=== PATIENT | male | born 1950 | race Caucasian/White ===

== ENCOUNTER 2020-09-22 18:04 | Emergency (ER) | payer MEDICARE, OTHER, SELFPAY | END 2020-09-22 18:26 | disposition left against medical advice (07) | PROVIDERS: Emergency Provider Internal Medicine Hematology & Oncology | DX: Z53.21 Procedure and treatment not carried out due to patient leaving prior to being seen by health care provider (principal) | CPT/HCPCS: 99199 ==

== ENCOUNTER 2020-09-22 18:28 | Emergency (ER) | payer MEDICARE, OTHER, SELFPAY ==
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
[2020-09-22 18:31] VITALS: BP 140/76; PULSE 79; RESP 18; TEMP 36.8; O2SAT 94
[2020-09-22 18:55] LABS: Basophils Absolute Auto 0.1 K/mm3 (0.0-0.1); Basophils Percent Auto 0.6 % (0.2-1.2); Eosinophils Absolute Auto 0.2 K/mm3 (0-0.3); Eosinophils Percent Auto 1.1 % (0-4.4); Hematocrit 46.6 % (42.0-52.0); Hemoglobin 15.8 g/dL (14.0-18.0); Immature Granulocyte Absolute 0.15 K/mm3 (0.00-0.031); Lymphocytes Absolute Auto 1.87 K/mm3 (0.9-3.2); Lymphocytes Percent Auto 12.3 % (18.3-44.2); Mean Corpuscular HGB Conc 33.9 g/dl (32-36); Mean Corpuscular Hemoglobin 31.7 pg (26-34); Mean Corpuscular Volume 93.6 fl (80-100); Mean Platelet Volume 8.8 fl (7.4-10.4); Monocytes Absolute Auto 0.9 K/mm3 (0.1-0.6); Monocytes Percent Auto 5.8 % (2.6-8.5); Neutrophils Percent Auto 79.2 % (45.5-73.1); Platelet Count Result 267 k/mm3 (150-375); Red Blood Count 4.98 M/mm3 (4.6-6.20); Red Cell Distribution Width 12.2 % (11.5-14.5); White Blood Count 15.2 K/mm3 (4.5-10.0)
[2020-09-22 19:05] LABS: Alanine Aminotransferase 18 U/L (4-50); Albumin Level 4.4 g/dL (3.5-5.1); Alkaline Phosphatase 62 U/L (38-126); Anion Gap 4 mmol/L (8-16); Aspartate Amino Transferase 26 U/L (17-59); Bilirubin,Total 0.5 mg/dL (0.2-1.3); Blood Urea Nitrogen 22 mg/dL (9-20); Calcium 9.4 mg/dL (8.4-10.2); Carbon Dioxide 30 mmol/L (22-30); Chloride 104 mmol/L (98-107); Estimated CRCL calculation 54 ml/min; Estimated Glomerular Filt Rate > 60; Glucose 102 mg/dL (75-110); Lipase 98 U/L (23-300); Potassium 4.6 mmol/L (3.4-5.0); Sodium 138 mmol/L (137-145)
[2020-09-22 19:08] LABS: Prothrombin Time 13.9 Seconds (11.1-14.7)
[2020-09-22 19:09] LABS: Partial Thromboplastin Time 25.8 SECONDS (22.3-36.8)
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
[2020-09-22] MEDS: MORPHINE SULFATE (*CRX) 4 MG/ML INJ IV PUSH (20:23)
[2020-09-22] MEDS: SODIUM CHLORIDE 0.9% IV 1,000 ML 999 ML IV CONT (21:37)
== END 2020-09-22 22:24 | disposition home or self-care (01) ==
PROVIDERS: Emergency Provider Emergency Medicine; PCP Family Medicine
DX: S30.22XA Contusion of scrotum and testes, initial encounter (principal); I10 Essential (primary) hypertension; V18.0XXA Pedal cycle driver injured in noncollision transport accident in nontraffic accident, initial encounter
CPT/HCPCS: 36415; 74177; 76870; 80053; 83690; 85025; 85610; 85730; 93976; 99284; J2270; J7030; Q9967

== ENCOUNTER 2020-11-13 09:38 | Outpatient (CLI) | payer MEDICARE, OTHER, SELFPAY ==
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
== END 2020-11-13 09:39 | disposition home or self-care (01) ==
PROVIDERS: PCP Family Medicine; Visit Provider Urology
DX: S30.22XA Contusion of scrotum and testes, initial encounter (principal); X58.XXXA Exposure to other specified factors, initial encounter; K40.90 Unilateral inguinal hernia, without obstruction or gangrene, not specified as recurrent; K57.30 Diverticulosis of large intestine without perforation or abscess without bleeding
CPT/HCPCS: 72192

== ENCOUNTER 2021-12-23 01:13 | Day surgery (SDC) | payer MEDICARE, OTHER, SELFPAY ==
[2021-12-09 13:27] VITALS: BMI 24.5
--- NOTE | 2021-12-22 12:54 | WPDANESEPPF ---
Anes - Initial Pre Proc Eval Procedure: Operation Date: 12/23/21 11:30 Proposed Procedures p Screening Colonoscopy - Surjit Alvarado MD Date/Time: 12/22/21 12:54 Surgeon: Surjit Alvarado MD Pre Op Diagnosis: neoplasm screening Patient Data Age: 71 Gender: M Height: 1.73 m Weight: 73 kg Allergies Allergy/AdvReac Type Severity Reaction Status Date / Time crab Allergy Severe Anaphylaxis Verified 12/09/21 13:28 bacitracin Allergy Mild BLISTER Verified 12/09/21 13:27 AND REDNESS cephalexin Allergy Mild rash Verified 12/09/21 13:27 neomycin Allergy Mild BLISTER Verified 12/09/21 13:27 AND REDNESS polymyxin B Allergy Mild BLISTER Verified 12/09/21 13:27 AND REDNESS Home Medications Medication Instructions Recorded Confirmed Type omeprazole 20 mg capsule,delayed 20 mg PO DAILY 10/30/20 12/09/21 History release acetaminophen 650 mg 650 mg PO Q12H PRN Pain 11/23/21 12/09/21 History tablet,extended release (Tylenol Arthritis Pain) atorvastatin 10 mg tablet 10 mg PO DAILY 11/23/21 12/09/21 History ibuprofen 200 mg capsule (Motrin 200 mg PO Q6H PRN Pain 11/23/21 12/09/21 History IB) omega 2-zmn-yqw-fish oil 300 4 cap PO DAILY 11/23/21 12/09/21 History mg-1,000 mg capsule (Fish Oil) sodium sul 1.479 gram-potas ch See Rx Instructions PO PER PKG DIR 11/29/21 12/09/21 Rx 0.188 gram-magnes sul 0.225 gram #24 tabs tablet (Sutab) metoprolol tartrate 25 mg tablet 1 tablet PO BID 12/09/21 12/09/21 History sildenafil 100 mg tablet 100 mg PO PRN PRN Erectile 12/09/21 12/09/21 History Dysfunction zolpidem 10 mg tablet 1 tablet PO HS PRN Insomnia 12/09/21 12/09/21 History peg 3350-electrolytes 236 240 ml PO Q10M 1 day #2,000 mL 12/22/21 Rx gram-22.74 gram-6.74 gram-5.86 gram solution (Golytely) Patient hx anesthesia problems: none Family hx anesthesia problems: none Results Review: All pre-operative results and documents have been reviewed as part of the pre-operative evaluation. [facility] Past Medical History Medical History (Updated 12/22/21 @ 12:55 by Elijah Sifuentes MD) Barretts esophagus GERD (gastroesophageal reflux disease) Hypertension ANITA on CPAP Osteoarthritis Surgical History Surgical History History of shoulder surgery bilateral Family History Family History Father Hypertension Sibling Malignant neoplasm of prostate Lung cancer Social History Social History Smoking packs per day: 1 Smoking cigarettes per day: 20.0 Years smoked: 35 Smoking pack-years: 35.00 Smoking status: Former smoker Tobacco type: cigarettes Alcohol intake: current Alcohol use details: social Substance use: current Substance use type: marijuana Other substance usage details: OCC. EDIBLE Living arrangements: alone Spiritual care concerns: No Anes - Eval Final PreProcedure Day of Procedure 12/22/21 12:54 Patient weight: normal Heart: regular rate and rhythm Lungs: clear to auscultation and normal air movement Airway: Mallampati scale class II Neurological: alert and oriented Last oral intake: >/= 8 hours ASA classification: II Emergent: no Anesthetic plan: proceed Anesthesia type and monitoring: general GIVS Results Review: All pre-operative results and documents have been reviewed as part of the pre-operative evaluation. Informed Consent: The patient's anesthetic plan and its attendant risks and benefits were discussed with the patient/family/POA. Questions were solicited and answers provided to the satisfaction of the patient/family/POA.
[2021-12-23 10:19] VITALS: BMI 23.6
[2021-12-23 10:22] VITALS: BP 121/66; PULSE 66; RESP 18; TEMP 35.9; O2SAT 99
[2021-12-23] MEDS: LACTATED RINGERS 1,000 ML 150 ML IV CONT (10:29)
--- NOTE | 2021-12-23 10:41 | WPDHPUPDATE1 ---
History and Physical Update Update Date/Time: 12/23/21 10:41 History and Physical has been reviewed, including an updated exam of the patient. There are NO changes in the patient's condition. Risks, benefits, and alternatives have been discussed and questions answered. Patient agrees to proceed with procedure.
[2021-12-23] MEDS: SIMETHICONE ORAL SUSPENSION 20 MG/0.3 ML 30 ML BOTTLE 0.6 ML IRRIGATION (11:32)
[2021-12-23 11:41] VITALS: BP 99/53; PULSE 54; RESP 16; O2SAT 100
[2021-12-23 11:51] VITALS: BP 106/61; PULSE 52; RESP 18; O2SAT 100
[2021-12-23 12:01] VITALS: BP 113/65; PULSE 52; RESP 18; O2SAT 99
== END 2021-12-23 12:03 | disposition home or self-care (01) ==
PROVIDERS: PCP Family Medicine; Visit Provider Internal Medicine Gastroenterology
PROC: 0DJD8ZZ Inspection of Lower Intestinal Tract, Via Natural or Artificial Opening Endoscopic (ICD-10-PCS; CPT 45378; principal; 2021-12-23 11:30)
DX: Z12.11 Encounter for screening for malignant neoplasm of colon (principal); K64.8 Other hemorrhoids; K57.30 Diverticulosis of large intestine without perforation or abscess without bleeding; I10 Essential (primary) hypertension; G47.33 Obstructive sleep apnea (adult) (pediatric); E78.5 Hyperlipidemia, unspecified; K21.9 Gastro-esophageal reflux disease without esophagitis; K22.70 Barrett's esophagus without dysplasia; M19.90 Unspecified osteoarthritis, unspecified site; Z87.891 Personal history of nicotine dependence; F12.90 Cannabis use, unspecified, uncomplicated
CPT/HCPCS: G0121; J2704; J7120

== ENCOUNTER 2024-02-06 02:20 | Day surgery (SDC) | payer MEDICARE, OTHER, SELFPAY ==
[2024-01-19 10:23] VITALS: BMI 25.1
[2024-02-06 09:30] VITALS: BP 120/60; PULSE 56; RESP 20; TEMP 36.3; O2SAT 98; BMI 24.5
--- NOTE | 2024-02-06 09:36 | WPDANESEPPF ---
Anes - Initial Pre Proc Eval Procedure: Operation Date: 02/06/24 11:00 Proposed Procedures p Esophagogastroduodenoscopy - Jason Barroso MD Date/Time: 02/06/24 09:36 Surgeon: Jason Barroso MD Pre Op Diagnosis: Marrero's esophagus, GERD Patient Data Age: 73 Gender: M Height: 1.73 m Weight: 73.1 kg Last Vital Signs Temp 97.4 F L 02/06/24 09:30 Pulse 56 L 02/06/24 09:30 Resp 20 02/06/24 09:30 BP 120/60 02/06/24 09:30 Pulse Ox 98 02/06/24 09:30 O2 Del Method Room Air 02/06/24 09:30 Allergies Allergy/AdvReac Type Severity Reaction Status Date / Time crab Allergy Severe Anaphylaxis Verified 01/19/24 10:20 bacitracin Allergy Mild BLISTER Verified 01/19/24 10:20 AND REDNESS cephalexin Allergy Mild rash Verified 01/19/24 10:20 neomycin Allergy Mild BLISTER Verified 01/19/24 10:20 AND REDNESS polymyxin B Allergy Mild BLISTER Verified 01/19/24 10:20 AND REDNESS Home Medications Medication Instructions Recorded Confirmed Type acetaminophen 650 mg 650 mg PO Q12H PRN Pain 11/23/21 02/06/24 History tablet,extended release (Tylenol Arthritis Pain) atorvastatin 10 mg tablet 10 mg PO DAILY 11/23/21 02/06/24 History ibuprofen 200 mg capsule (Motrin 200 mg PO Q6H PRN Pain 11/23/21 02/06/24 History IB) omega 8-vlf-vxd-fish oil 300 4 cap PO DAILY 11/23/21 02/06/24 History mg-1,000 mg capsule (Fish Oil) metoprolol tartrate 25 mg tablet 1 tablet PO BID 12/09/21 02/06/24 History sildenafil 100 mg tablet 100 mg PO PRN PRN Erectile 12/09/21 02/06/24 History Dysfunction zolpidem 10 mg tablet 1 tablet PO HS PRN Insomnia 12/09/21 02/06/24 History albuterol sulfate 90 mcg/actuation 1 puff inhalation Q4H PRN asthma 11/09/23 02/06/24 History aerosol inhaler omeprazole 20 mg capsule,delayed 20 mg PO DAILY 3 months #90 caps 11/09/23 02/06/24 Rx release ropinirole 0.5 mg tablet 0.5 mg PO BID 11/09/23 02/06/24 History Patient hx anesthesia problems: none Family hx anesthesia problems: none Results Review: All pre-operative results and documents have been reviewed as part of the pre-operative evaluation. [facility] Past Medical History Medical History Barretts esophagus GERD (gastroesophageal reflux disease) Hypertension ANITA on CPAP Osteoarthritis Surgical History Surgical History History of shoulder surgery bilateral Family History Family History Father Hypertension Sibling Malignant neoplasm of prostate Lung cancer Social History Social History Smoking packs per day: 1 Smoking cigarettes per day: 20.0 Years smoked: 35 Smoking pack-years: 35.00 Smoking status: Former smoker Tobacco type: cigarettes Alcohol intake: current Drinks per week: 2 Alcohol use details: social Substance use: current Substance use type: other Other substance usage details: THC gummy 2x week Living arrangements: alone Occupation/Education: retired Spiritual care concerns: No Anes - Eval Final PreProcedure Day of Procedure 02/06/24 09:36 Patient weight: normal Heart: regular rate and rhythm Lungs: clear to auscultation Airway: Mallampati scale class II Neurological: alert and oriented Last oral intake: >/= 8 hours ASA classification: III Emergent: no Anesthetic plan: proceed Anesthesia type and monitoring: general GIVS and standard monitoring Results Review: All pre-operative results and documents have been reviewed as part of the pre-operative evaluation. Informed Consent: The patient's anesthetic plan and its attendant risks and benefits were discussed with the patient/family/POA. Questions were solicited and answers provided to the satisfaction of the patient/family/POA.
[2024-02-06] MEDS: LACTATED RINGERS 1,000 ML 150 ML IV CONT (09:43)
--- NOTE | 2024-02-06 10:17 | PM.HPGS ---
History of Present Illness History of Present Illness Consent: Risks, benefits, and alternatives have been discussed and questions answered. Patient agrees to proceed with procedure. Chief complaint: Underwood's esophagus, GERD Narrative: Chase Yang is a 73 year old male with underwood's esophagus, last EGD 3 years ago, on ppi Review of Systems Review of Systems: All systems reviewed & are unremarkable except as noted in HPI and below PMFSH Past Medical History Medical History Barretts esophagus GERD (gastroesophageal reflux disease) Hypertension ANITA on CPAP Osteoarthritis Surgical History Surgical History History of shoulder surgery bilateral Family History Family History Father Hypertension Sibling Malignant neoplasm of prostate Lung cancer Social History Social History Smoking packs per day: 1 Smoking cigarettes per day: 20.0 Years smoked: 35 Smoking pack-years: 35.00 Smoking status: Former smoker Tobacco type: cigarettes Alcohol intake: current Drinks per week: 2 Alcohol use details: social Substance use: current Substance use type: other Other substance usage details: THC gummy 2x week Living arrangements: alone Occupation/Education: retired Spiritual care concerns: No Meds Home Medications and Allergies Home Medications Medication Instructions Recorded Confirmed Type acetaminophen 650 mg 650 mg PO Q12H PRN Pain 11/23/21 02/06/24 History tablet,extended release (Tylenol Arthritis Pain) atorvastatin 10 mg tablet 10 mg PO DAILY 11/23/21 02/06/24 History ibuprofen 200 mg capsule (Motrin 200 mg PO Q6H PRN Pain 11/23/21 02/06/24 History IB) omega 9-utm-uon-fish oil 300 4 cap PO DAILY 11/23/21 02/06/24 History mg-1,000 mg capsule (Fish Oil) metoprolol tartrate 25 mg tablet 1 tablet PO BID 12/09/21 02/06/24 History sildenafil 100 mg tablet 100 mg PO PRN PRN Erectile 12/09/21 02/06/24 History Dysfunction zolpidem 10 mg tablet 1 tablet PO HS PRN Insomnia 12/09/21 02/06/24 History albuterol sulfate 90 mcg/actuation 1 puff inhalation Q4H PRN asthma 11/09/23 02/06/24 History aerosol inhaler omeprazole 20 mg capsule,delayed 20 mg PO DAILY 3 months #90 caps 11/09/23 02/06/24 Rx release ropinirole 0.5 mg tablet 0.5 mg PO BID 11/09/23 02/06/24 History Allergies Allergy/AdvReac Type Severity Reaction Status Date / Time crab Allergy Severe Anaphylaxis Verified 01/19/24 10:20 bacitracin Allergy Mild BLISTER Verified 01/19/24 10:20 AND REDNESS cephalexin Allergy Mild rash Verified 01/19/24 10:20 neomycin Allergy Mild BLISTER Verified 01/19/24 10:20 AND REDNESS polymyxin B Allergy Mild BLISTER Verified 01/19/24 10:20 AND REDNESS Vital Signs Vital Signs - 24 hr 02/06/24 09:30 Temperature 97.4 F L Pulse Rate 56 L Respiratory Rate 20 Blood Pressure 120/60 Pulse Oximetry 98 Oxygen Delivery Room Air Exam Const: General: comfortable and no acute distress HENMT: Face/Nose/Sinus: Normal nares present Eyes: General: appearance normal, both eyes and all related structures Neck: Neck: no JVD Resp: Auscultation: clear to auscultation bilaterally Cardio: Rate: regular rate Rhythm: regular rhythm GI: Inspection: non-distended GI Palp: Yes Soft to palpation Skin: General skin exam: normal color Neuro: General: gait normal Speech: normal speech Extrem: General: normal to inspection Psych: Mental Status: mental status grossly normal Assessment and Plan Assessment and plan (1) Barretts esophagus: Code(s): K22.70 - Underwood's esophagus without dysplasia Status: Acute Assessment and Plan: egd with bx on ppi (2) GERD (gastroesophageal reflux disease): Code(s): K21.9 - Gas
[2024-02-06 10:33] VITALS: BP 100/54; PULSE 50; RESP 18; O2SAT 96
[2024-02-06 10:43] VITALS: BP 109/58; PULSE 46; RESP 17; O2SAT 100
[2024-02-06 10:55] VITALS: BP 117/67; PULSE 49; RESP 17; O2SAT 100
== END 2024-02-06 10:59 | disposition home or self-care (01) ==
PROVIDERS: PCP Family Medicine; Referring Provider Nurse Practitioner Family; Visit Provider Internal Medicine Gastroenterology
PROC: 0DJ08ZZ Inspection of Upper Intestinal Tract, Via Natural or Artificial Opening Endoscopic (ICD-10-PCS; CPT 43235; principal; 2024-02-06 11:00)
DX: K22.70 Barrett's esophagus without dysplasia (principal); K21.00 Gastro-esophageal reflux disease with esophagitis, without bleeding; K44.9 Diaphragmatic hernia without obstruction or gangrene; I10 Essential (primary) hypertension; G47.33 Obstructive sleep apnea (adult) (pediatric); Z99.89 Dependence on other enabling machines and devices; M19.90 Unspecified osteoarthritis, unspecified site; Z87.891 Personal history of nicotine dependence
CPT/HCPCS: 43239; 88305; J2001; J2704; J7120

== ENCOUNTER 2024-05-15 12:52 | Outpatient (CLI) | payer MEDICARE, OTHER, SELFPAY | END 2024-05-15 12:53 | disposition home or self-care (01) | PROVIDERS: PCP Family Medicine; Visit Provider Family Medicine | DX: H90.3 Sensorineural hearing loss, bilateral (principal) | CPT/HCPCS: 92557; 92567 ==

== ENCOUNTER 2024-08-24 09:53 | Emergency (ER) | payer MEDICARE, OTHER, SELFPAY ==
[2024-08-24 10:05] VITALS: BP 106/79; PULSE 59; RESP 20; TEMP 36.6; O2SAT 96
--- NOTE | 2024-08-24 10:25 | ED_ITS ---
HPI - Ear Problem General Chief complaint: Ear Stated complaint: Right Ear Irritation Time Seen by Provider: 08/24/24 10:25 Source: patient Mode of arrival: ambulatory Limitations: no limitations History of Present Illness HPI Narrative: 74-year-old male presents with complaint of right ear pain for 2 days with decreased hearing, ringing to ear. No URI symptoms. Afebrile. All systems reviewed and negative except as noted above. Related Data Home Medications ?Medication ?Instructions ?Recorded ?Confirmed ?Last Taken ?Type acetaminophen 650 mg 650 mg PO Q12H PRN Pain 11/23/21 08/24/24 02/05/24 History tablet,extended release (Tylenol Arthritis Pain) atorvastatin 10 mg tablet 10 mg PO DAILY 11/23/21 02/06/24 02/05/24 History ibuprofen 200 mg capsule (Motrin 200 mg PO Q6H PRN Pain 11/23/21 02/06/24 02/05/24 History IB) omega 5-iiw-uol-fish oil 300 4 cap PO DAILY 11/23/21 02/06/24 02/05/24 History mg-1,000 mg capsule (Fish Oil) metoprolol tartrate 25 mg tablet 1 tablet PO BID 12/09/21 02/06/24 02/06/24 06:00 History sildenafil 100 mg tablet 100 mg PO PRN PRN Erectile 12/09/21 02/06/24 02/05/24 History Dysfunction zolpidem 10 mg tablet 1 tablet PO HS PRN Insomnia 12/09/21 02/06/24 02/05/24 History albuterol sulfate 90 mcg/actuation 1 puff inhalation Q4H PRN asthma 11/09/23 02/06/24 02/05/24 History aerosol inhaler ropinirole 0.5 mg tablet 0.5 mg PO BID 11/09/23 02/06/24 02/05/24 History Allergies Allergy/AdvReac Type Severity Reaction Status Date / Time crab Allergy Severe Anaphylaxis Verified 08/24/24 10:08 bacitracin Allergy Mild BLISTER Verified 08/24/24 10:08 AND REDNESS cephalexin Allergy Mild rash Verified 08/24/24 10:08 neomycin Allergy Mild BLISTER Verified 08/24/24 10:08 AND REDNESS polymyxin B Allergy Mild BLISTER Verified 08/24/24 10:08 AND REDNESS Review of Systems Review of Systems: CONSTITUTIONAL: Denies fever, chills, or sweats. EYES: Denies visual changes, redness, or discharge. ENT: Denies rhinorrhea, congestion, sore throat . Reports right ear pain, decreased hearing, ringing. CARDIOVASCULAR: Denies chest pain, palpitations, or edema. RESPIRATORY: Denies cough or dyspnea. GASTROINTESTINAL: Denies abdominal pain, nausea, vomiting, or diarrhea. GENITOURINARY: Denies dysuria or hematuria. SKIN: Denies rash or itching. MUSCULOSKELETAL: Denies back pain, joint pain, or myalgia. NEUROLOGIC: Denies headache, numbness, or weakness. PSYCHIATRIC: Denies anxiety or depression. All other systems reviewed are negative, except as documented in HPI. COUNTS INCLUDE 234 BEDS AT THE [facility] Past Medical History Medical History Barretts esophagus GERD (gastroesophageal reflux disease) Hypertension ANITA on CPAP Osteoarthritis Surgical History Surgical History History of shoulder surgery bilateral Family History Family History Father Hypertension Sibling Malignant neoplasm of prostate Lung cancer Social History Social History Smoking packs per day: 1 Smoking cigarettes per day: 20.0 Years smoked: 35 Smoking pack-years: 35.00 Smoking status: Former smoker Tobacco type: cigarettes Alcohol intake: current Drinks per week: 2 Alcohol use details: social Substance use: current Substance use type: other Other substance usage details: THC gummy 2x week Living arrangements: alone Occupation/Education: retired Spiritual care concerns: No Comments At time of signature, agree with nursing past medical, surgical, social and family history. There is no relevant family history pertinent to the presenting complaint. Exam Narrative: GENERAL: This is a well-nourished, well-developed patient, in no apparent distress. HEAD: normocephalic, atraumatic. EYES: PERRL. Sclera clear/white. Vision is grossly intact. EARS: External ears normal, auditory canals clear and without drainage, Right TM is erythematous, retracted Monday fluid. Left TM is normal. No perforation bilaterally. Hearing grossly intact. NOSE: External nose normal with no obvious nasal discharge, nares without redness, no rhinorrhea. THROAT: Mucous membranes moist, posterior pharynx clear. NECK: Neck supple, non-tender without lymphadenopathy, masses or thyromegaly. CARDIOVASCULAR: Regular rate and rhythm without murmurs, gallops, or rubs. RESPIRATORY: Clear to auscultation. Breath sounds equal bilaterally. No wheezes, rales, or rhonchi. SKIN: warm, Dry, intact with no suspicious lesions or rash, good texture and turgor. NEURO: awake, alert, and oriented to person, place and time. There were no obvious focal neurologic abnormalities. EXTREMITIES: No joint tenderness, effusion, or edema noted. Course Course Level of Care: Express Care Visit Vital Signs Vital signs: Vital Signs Temperature 36.6 C 08/24/24 10:05 Pulse Rate 59 L 08/24/24 10:05 Respiratory Rate 20 08/24/24 10:05 Blood Pressure 106/79 08/24/24 10:05 Pulse Oximetry 96 08/24/24 10:05 Oxygen Delivery Room Air 08/24/24 10:05 Temperature 36.6 C 08/24/24 10:05 Pulse Rate 59 L 08/24/24 10:05 Respiratory Rate 08/24/24 10:05 Blood Pressure 106/79 08/24/24 10:05 Pulse Oximetry 96 08/24/24 10:05 Oxygen Delivery Room Air 08/24/24 10:05 Reviewed Medical Decision Making MDM Narrative Medical decision making narrative: will treat right ear infection with amoxicillin. Patient is well-appearing, nontoxic. Recommend follow-up with primary care physician if ear pain not improving. Please be advised this is a medical document. It is intended for [id number] communication. It is written in medical language and may contain unfamiliar abbreviations or verbiage. Medical documents are intended to carry relevant information, facts as evident, and the clinical opinion of the practitioner at the time of the encounter. This report may have been done utilizing a voice recognition system. Attempts have been made to correct errors. However, there may be uncorrected grammatical, spelling, and recognition errors present. The file time of this note does not necessarily represent the time of service. Vital Signs Vital Signs: Vital Signs Temperature 36.6 C 08/24/24 10:05 Pulse Rate 59 L 08/24/24 10:05 Respiratory Rate 20 08/24/24 10:05 Blood Pressure 106/79 08/24/24 10:05 Pulse Oximetry 96 08/24/24 10:05 Oxygen Delivery Room Air 08/24/24 10:05 Temperature 36.6 C 08/24/24 10:05 Pulse Rate 59 L 08/24/24 10:05 Respiratory Rate 20 08/24/24 10:05 Blood Pressure 106/79 08/24/24 10:05 Pulse Oximetry 96 08/24/24 10:05 Oxygen Delivery Room Air 08/24/24 10:05 Discharge Plan Discharge Clinical Impression: Acute right otitis media Patient Disposition: Home, Self-Care Condition: Stable Instructions: Antibiotic Form, Ear Infection (ED) Additional Instructions: take antibiotic as prescribed until gone. Take Tylenol every 6-8 hours as needed for pain. Follow-up with your doctor if ear symptoms not improving. Patient Language: Angolan Prescriptions: New amoxicillin 875 mg tablet 875 mg PO Q12H 10 Days Qty: 20 0RF No Action atorvastatin 10 mg tablet 10 mg PO DAILY ibuprofen [Motrin IB] 200 mg capsule 200 mg PO Q6H PRN (Reason: Pain) omega 7-uwi-idg-fish oil [Fish Oil] 300-1,000 mg capsule 4 cap PO DAILY acetaminophen [Tylenol Arthritis Pain] 650 mg tablet extended release 650 mg PO Q12H PRN (Reason: Pain) ropinirole 0.5 mg tablet 0.5 mg PO BID albuterol sulfate 90 mcg/actuation HFA aerosol inhaler 1 puff inhalation Q4H PRN (Reason: asthma) omeprazole 20 mg capsule,delayed release(DR/EC) 20 mg PO DAILY 90 Days Qty: 90 3RF sildenafil 100 mg tablet 100 mg PO PRN PRN (Reason: Erectile Dysfunction) zolpidem 10 mg tablet 1 tablet PO HS PRN (Reason: Insomnia) metoprolol tartrate 25 mg tablet 1 tablet PO BID Follow-up/Referrals: Suzette,MD Merced [Primary Care Provider] - Time of Disposition: 10:31
== END 2024-08-24 10:32 | disposition home or self-care (01) ==
PROVIDERS: Emergency Provider Nurse Practitioner Family; PCP Family Medicine
DX: H66.91 Otitis media, unspecified, right ear (principal); Z87.891 Personal history of nicotine dependence; F12.90 Cannabis use, unspecified, uncomplicated; K22.70 Barrett's esophagus without dysplasia; I10 Essential (primary) hypertension; K21.9 Gastro-esophageal reflux disease without esophagitis; G47.33 Obstructive sleep apnea (adult) (pediatric); M19.90 Unspecified osteoarthritis, unspecified site
CPT/HCPCS: 99213; G0463

== ENCOUNTER 2025-01-09 15:19 | Emergency (ER) | payer MEDICARE, OTHER, SELFPAY ==
[2025-01-09 15:26] VITALS: BP 117/69; PULSE 66; RESP 14; TEMP 36.5; O2SAT 100
--- NOTE | 2025-01-09 15:47 | ED_ITS ---
HPI - Skin/Abscess/Foreign Bdy General Chief complaint: Skin/Abscess/Foreign Body Stated complaint: Rash Time Seen by Provider: 01/09/25 15:30 Source: patient Mode of arrival: ambulatory Limitations: no limitations History of Present Illness HPI narrative: Chase is a 74-year-old male patient presenting to the clinic today with complaints of a itchy rash to the right distal forearm/wrist area. He reports he got into some poison yuridia approximately 1 week ago. Has been applying hydrocortisone cream to the area to help alleviate his symptoms however it has not completely resolved. He states the itching has improved. Denies any fevers, chills, body aches. Area is nontender. Related Data Home Medications ?Medication ?Instructions ?Recorded ?Confirmed ?Last Taken ?Type acetaminophen 650 mg 650 mg PO Q12H PRN Pain 11/23/21 08/24/24 02/05/24 History tablet,extended release (Tylenol Arthritis Pain) atorvastatin 10 mg tablet 10 mg PO DAILY 11/23/21 02/06/24 02/05/24 History ibuprofen 200 mg capsule (Motrin 200 mg PO Q6H PRN Pain 11/23/21 02/06/24 02/05/24 History IB) omega 2-xuc-xmv-fish oil 300 4 cap PO DAILY 11/23/21 02/06/24 02/05/24 History mg-1,000 mg capsule (Fish Oil) metoprolol tartrate 25 mg tablet 1 tablet PO BID 12/09/21 02/06/24 02/06/24 06:00 History sildenafil 100 mg tablet 100 mg PO PRN PRN Erectile 12/09/21 02/06/24 02/05/24 History Dysfunction zolpidem 10 mg tablet 1 tablet PO HS PRN Insomnia 12/09/21 02/06/24 02/05/24 History albuterol sulfate 90 mcg/actuation 1 puff inhalation Q4H PRN asthma 11/09/23 02/06/24 02/05/24 History aerosol inhaler ropinirole 0.5 mg tablet 0.5 mg PO BID 11/09/23 02/06/24 02/05/24 History Allergies Allergy/AdvReac Type Severity Reaction Status Date / Time crab Allergy Severe Anaphylaxis Verified 01/09/25 15:20 bacitracin Allergy Mild BLISTER Verified 01/09/25 15:20 AND REDNESS cephalexin Allergy Mild rash Verified 01/09/25 15:20 neomycin Allergy Mild BLISTER Verified 01/09/25 15:20 AND REDNESS polymyxin B Allergy Mild BLISTER Verified 01/09/25 15:20 AND REDNESS Review of Systems Review of Systems: Pertinent positives per HPI. Patient denies any fever, chills, rash, headache, visual changes, dizziness, cough, shortness of breath, chest pain, palpitations, nausea, vomiting, diarrhea, constipation, abdominal pain, or any urinary issues. [facility] Past Medical History Medical History Barretts esophagus GERD (gastroesophageal reflux disease) Hypertension ANITA on CPAP Osteoarthritis Surgical History Surgical History History of shoulder surgery bilateral Family History Family History Father Hypertension Sibling Malignant neoplasm of prostate Lung cancer Social History Social History Smoking packs per day: 1 Smoking cigarettes per day: 20.0 Years smoked: 35 Smoking pack-years: 35.00 Smoking status: Former smoker Tobacco type: cigarettes Alcohol intake: current Drinks per week: 2 Alcohol use details: social Substance use: current Substance use type: other Other substance usage details: THC gummy 2x week Living arrangements: alone Occupation/Education: retired Spiritual care concerns: No Comments At the time of my signature, I reviewed and agree with the nursing past medical, surgical, social, and family history. There is no relevant family history pertinent to the patient complaint. Exam Narrative: General: Well-developed, well nourished, in no apparent distress Head: Normocephalic, atraumatic. Cardio: Regular rate and rhythm, s1 and s2 normal, no murmur appreciated. Resp: Clear to auscultation bilaterally, no rhonchi, rales, wheezing or rubs. Integumentary: [place], warm, and dry, red, raised, itchy, blistering rash to the right volar forearm/wrist Course Course Emergency Course: Portions of this record may have been created with voice recognition software. Level of Care: Express Care Visit Vital Signs Vital signs: Vital Signs Temperature 36.5 C 01/09/25 15:26 Pulse Rate 66 01/09/25 15:26 Respiratory Rate 14 01/09/25 15:26 Blood Pressure 117/69 01/09/25 15:26 Pulse Oximetry 100 01/09/25 15:26 Oxygen Delivery Room Air 01/09/25 15:26 Temperature 36.5 C 01/09/25 15:26 Pulse Rate 66 01/09/25 15:26 Respiratory Rate 14 01/09/25 15:26 Blood Pressure 117/69 01/09/25 15:26 Pulse Oximetry 100 01/09/25 15:26 Oxygen Delivery Room Air 01/09/25 15:26 Vital signs reviewed MDM - Skin/Abscess/Foreign Bdy MDM Narrative Medical decision making narrative: At the time of visit patient is resting comfortably on the exam table. Patient appears to be nontoxic. Complaints of a itchy rash to the right distal forearm/wrist area. He reports he got into some poison yuridia approximately 1 week ago. Has been applying hydrocortisone cream to the area to help alleviate his symptoms however it has not completely resolved. He states the itching has improved. Denies any fevers, chills, body aches. Area is nontender. Has red, raised, itchy, blistering rash to the right volar wrist and distal forearm. Plan: I suspect patient has poison yuridia dermatitis to the right forearm/wrist. Prescription for triamcinolone cream and prednisone was sent to the pharmacy. Supportive measures were discussed with the patient and they voiced understanding discharge instructions and agrees to treatment plan. Return precautions reviewed Differential Diagnosis Differential diagnosis: Likely abscess of skin or subcutaneous tissue, viral exanthem, dermatophytosis, urticaria, herpes zoster, allergic reaction to drug, cellulitis, eczema, insect bites, impetigo and contact dermatitis Discharge Plan Discharge Clinical Impression: Allergic dermatitis due to poison yuridia Patient Disposition: Home Condition: Stable Instructions: Antibiotic Form, Poison Yuridia (ED) Additional Instructions: Apply triamcinolone cream as directed Take prednisone as directed Avoid hot showers May apply calamine lotion to rash Avoid scratching as this can cause a secondary infection May take Benadryl 25-50mg every 6 hours as needed for itching. Follow up with your PCP in 3-5 days if symptoms persist or sooner if they worsen Go to the Emergency Room if symptoms worsen- fever, rash spreading with treatment, shortness of breath, tongue swelling, drooling, or chest pain Patient Language: Polish Prescriptions: New prednisone 10 mg tablet 10 mg PO DAILY Qty: 30 0RF Rx Instructions: 60mg po daily on day 1, 40mg po daily on days 2-4, 30mg po daily on days 5-6, 20mg po daily on days 7-8, 10mg po daily on days 9-10 triamcinolone acetonide 0.1 % cream 1 applic topical BID 7 Days Qty: 30 0RF No Action atorvastatin 10 mg tablet 10 mg PO DAILY ibuprofen [Motrin IB] 200 mg capsule 200 mg PO Q6H PRN (Reason: Pain) omega 0-kbl-auz-fish oil [Fish Oil] 300-1,000 mg capsule 4 cap PO DAILY acetaminophen [Tylenol Arthritis Pain] 650 mg tablet extended release 650 mg PO Q12H PRN (Reason: Pain) ropinirole 0.5 mg tablet 0.5 mg PO BID albuterol sulfate 90 mcg/actuation HFA aerosol inhaler 1 puff inhalation Q4H PRN (Reason: asthma) omeprazole 20 mg capsule,delayed release(DR/EC) 20 mg PO DAILY 90 Days Qty: 90 3RF sildenafil 100 mg tablet 100 mg PO PRN PRN (Reason: Erectile Dysfunction) zolpidem 10 mg tablet 1 tablet PO HS PRN (Reason: Insomnia) metoprolol tartrate 25 mg tablet 1 tablet PO BID Follow-up/Referrals: Suzette,MD [place] [Primary Care Provider] - Time of Disposition: 15:32 Quality NIHSS Nursing Documentation ED NIHSS nursing documentation: reviewed/agree
== END 2025-01-09 15:36 | disposition home or self-care (01) ==
PROVIDERS: Emergency Provider Nurse Practitioner Family; PCP Family Medicine
DX: L23.7 Allergic contact dermatitis due to plants, except food (principal); Z87.891 Personal history of nicotine dependence; F12.90 Cannabis use, unspecified, uncomplicated; K22.70 Barrett's esophagus without dysplasia; I10 Essential (primary) hypertension; K21.9 Gastro-esophageal reflux disease without esophagitis; G47.33 Obstructive sleep apnea (adult) (pediatric); M19.90 Unspecified osteoarthritis, unspecified site
CPT/HCPCS: 99211; G0463

== ENCOUNTER 2025-03-02 11:18 | Emergency (ER) | payer MEDICARE, OTHER, SELFPAY ==
[2025-03-02 11:26] VITALS: BP 128/61; PULSE 61; RESP 16; TEMP 36.7; O2SAT 94
--- NOTE | 2025-03-02 11:50 | ED.GENADULT ---
HPI - General Adult General Chief complaint: Skin/Abscess/Foreign Body Stated complaint: bump on tailbone Time Seen by Provider: 03/02/25 11:50 Source: patient Mode of arrival: ambulatory Limitations: no limitations History of Present Illness HPI narrative: 74-year-old male patient presents to the [facility] with complaints of soreness and a wound to the tailbone area that he noticed last night when getting into bed. Patient denies fevers body aches or chills. Patient states he has had abscesses in the past but never on his butt or tailbone. Related Data Home Medications ?Medication ?Instructions ?Recorded ?Confirmed ?Last Taken ?Type acetaminophen 650 mg 650 mg PO Q12H PRN Pain 11/23/21 08/24/24 02/05/24 History tablet,extended release (Tylenol Arthritis Pain) Held on 08/24/24. Instructions: Patient no longer taking atorvastatin 10 mg tablet 10 mg PO DAILY 11/23/21 02/06/24 02/05/24 History ibuprofen 200 mg capsule (Motrin 200 mg PO Q6H PRN Pain 11/23/21 02/06/24 02/05/24 History IB) omega 9-vae-hqv-fish oil 300 4 cap PO DAILY 11/23/21 02/06/24 02/05/24 History mg-1,000 mg capsule (Fish Oil) metoprolol tartrate 25 mg tablet 1 tablet PO BID 12/09/21 02/06/24 02/06/24 06:00 History sildenafil 100 mg tablet 100 mg PO PRN PRN Erectile 12/09/21 02/06/24 02/05/24 History Dysfunction zolpidem 10 mg tablet 1 tablet PO HS PRN Insomnia 12/09/21 02/06/24 02/05/24 History albuterol sulfate 90 mcg/actuation 1 puff inhalation Q4H PRN asthma 11/09/23 02/06/24 02/05/24 History aerosol inhaler ropinirole 0.5 mg tablet 0.5 mg PO BID 11/09/23 02/06/24 02/05/24 History Allergies Allergy/AdvReac Type Severity Reaction Status Date / Time crab Allergy Severe Anaphylaxis Verified 03/02/25 11:19 bacitracin Allergy Mild BLISTER Verified 03/02/25 11:19 AND REDNESS cephalexin Allergy Mild rash Verified 03/02/25 11:19 neomycin Allergy Mild BLISTER Verified 03/02/25 11:19 AND REDNESS polymyxin B Allergy Mild BLISTER Verified 03/02/25 11:19 AND REDNESS Review of Systems Review of Systems: CONSTITUTIONAL: Denies fever, chills, or sweats. EYES: Denies visual changes, redness, or discharge. ENT: Denies rhinorrhea, congestion, sore throat, or otalgia. CARDIOVASCULAR: Denies chest pain, palpitations, or edema. RESPIRATORY: Denies cough or dyspnea. GASTROINTESTINAL: Denies abdominal pain, nausea, vomiting, or diarrhea. GENITOURINARY: Denies dysuria or hematuria. SKIN: Denies rash or itching. Positive wound to the top of the tailbone area x1 day MUSCULOSKELETAL: Denies back pain, joint pain, or myalgia. NEUROLOGIC: Denies headache, numbness, or weakness. PSYCHIATRIC: Denies anxiety or depression. [facility] Past Medical History Medical History Osteoarthritis ANITA on CPAP Barretts esophagus GERD (gastroesophageal reflux disease) Hypertension Surgical History Surgical History History of shoulder surgery bilateral Family History Family History Father Hypertension Sibling Malignant neoplasm of prostate Lung cancer Social History Social History Smoking packs per day: 1 Smoking cigarettes per day: 20.0 Years smoked: 35 Smoking pack-years: 35.00 Smoking status: Former smoker Tobacco type: cigarettes Alcohol intake: current Drinks per week: 2 Alcohol use details: social Substance use: current Substance use type: other Other substance usage details: THC gummy 2x week Living arrangements: alone Occupation/Education: retired Spiritual care concerns: No Comments At the time of my signature I agree with nursing past medical history, surgical, social, and family history. There is no relevant family history pertinent to the presenting complaint. Exam Narrative: GENERAL: Well-appearing, well-nourished, and in no acute distress. HEAD: Normocephalic, atraumatic. EYES: PERRLA and EOMI. ENT: Nares clear, no rhinorrhea or epistaxis. Mucous membranes moist. NECK: Supple. No lymphadenopathy CHEST: Clear to auscultation. No respiratory distress. HEART: Regular rate and rhythm. No murmur heard. Normal peripheral pulses. ABDOMEN: Soft, nontender, nondistended, normal active bowel sounds. EXTREMITIES: Normal range of motion. No edema. SKIN: Warm, dry, no rash. Patient does have small abscess area noted to the left side of the top of the tailbone area right in the crack. There is an open area with some white drainage noted and mild surrounding erythema measuring approximately 3 x 3 cm. NEURO: No focal deficits. Alert and oriented x3. Course Course Level of Care: Express Care Visit Vital Signs Vital signs: Vital Signs Temperature 36.7 C 03/02/25 11:26 Pulse Rate 61 03/02/25 11:26 Respiratory Rate 16 03/02/25 11:26 Blood Pressure 128/61 03/02/25 11:26 Pulse Oximetry 94 03/02/25 11:26 Oxygen Delivery Room Air 03/02/25 11:26 Temperature 36.7 C 03/02/25 11:26 Pulse Rate 61 03/02/25 11:26 Respiratory Rate 16 03/02/25 11:26 Blood Pressure 128/61 03/02/25 11:26 Pulse Oximetry 94 03/02/25 11:26 Oxygen Delivery Room Air 03/02/25 11:26 Vital signs reviewed. Medical Decision Making MDM Narrative Medical decision making narrative: The discharge was collected and sent for a culture. The wound area had gauze placed. Patient requesting no antibiotic ointment states that he is allergic to it and causes a rash. Discussed with him that it is important that he cleans area 2 to 3 times a day with Dial soap and may also do some at since all soaks to help cleanse the area. Discussed with him we will discharge him home with an oral antibiotic and if the antibiotic that we provided him does not cover what the culture shows we will call him and change at that time. Patient verbalized understanding denies any other questions or concerns at this time. Differential Diagnosis Differential Diagnosis: Differential diagnosis: Abscess, cellulitis, hidradenitis, laceration, puncture wound. Vital Signs Vital Signs: Vital Signs Temperature 36.7 C 03/02/25 11:26 Pulse Rate 61 03/02/25 11:26 Respiratory Rate 16 03/02/25 11:26 Blood Pressure 128/61 03/02/25 11:26 Pulse Oximetry 94 03/02/25 11:26 Oxygen Delivery Room Air 03/02/25 11:26 Temperature 36.7 C 03/02/25 11:26 Pulse Rate 61 03/02/25 11:26 Respiratory Rate 16 03/02/25 11:26 Blood Pressure 128/61 03/02/25 11:26 Pulse Oximetry 94 03/02/25 11:26 Oxygen Delivery Room Air 03/02/25 11:26 Critical Care Time Critical Care Time Critical Care Time: No Discharge Plan Discharge Clinical Impression: Pilonidal abscess Patient Disposition: Home Condition: Stable Instructions: Antibiotic Form, Pilonidal Cyst (ED) Additional Instructions: A pilonidal abscess is an infection in a pilonidal cyst. The abscess occurs at the top of the crease between the buttocks. The infection causes a pocket of pus to form. It can be quite painful. Your doctor may have opened and drained the abscess. You can take care of yourself at home to help the area heal. In some cases, the abscess has problems healing or returns. Your doctor may suggest other ways to treat or remove the cyst. You may have had a sedative to help you relax. You may be unsteady after having sedation. It can take a few hours for the medicine's effects to wear off. Common side effects of sedation include nausea, vomiting, and feeling sleepy or tired. Follow-up care is a reeves part of your treatment and safety.?Be sure to make and go to all appointments, and call your doctor or nurse advice line ([phone]?in most provinces and territories) if you are having problems. It's also a good idea to know your test results and keep a list of the medicines you take. How can you care for yourself at home? If the doctor gave you a sedative: For 24 hours, don't do anything that requires attention to detail. This includes going to work, making important decisions, or signing any legal documents. It takes time for the medicine's effects to completely wear off. For your safety, do not drive or operate any machinery that could be dangerous. Wait until the medicine wears off and you can think clearly and react easily.If your doctor prescribed antibiotics, take them exactly as directed. Do not stop taking them just because you feel better. You need to take the full course of antibiotics.Be safe with medicines. Take pain medicines exactly as directed. If the doctor gave you a prescription medicine for pain, take it as prescribed. If you are not taking a prescription pain medicine, ask your doctor if you can take an [id number] medicine.If your doctor opened and drained your abscess, you may have gauze or other packing material inside your wound. Follow all instructions from your doctor on how to care for your wound.Keep the area of your wound very clean. Use wet cotton balls, a warm face cloth, or baby wipes. Clean the area gently, especially after a bowel movement. When should you call for help? Call?911?anytime you think you may need emergency care. For example, call if: You have trouble breathing.You passed out (lost consciousness). Call your doctor or nurse advice line now?or seek immediate medical care if: You have new or worse nausea or vomiting. You have symptoms of infection, such as: Increased pain, swelling, warmth, or redness. Red streaks leading from the area. Pus draining from the area. A fever. Watch closely for changes in your health, and be sure to contact your doctor or nurse advice line if: You do not get better as expected. Patient Language: Maltese Prescriptions: New doxycycline hyclate 100 mg capsule 100 mg PO BID 7 Days Qty: 14 0RF No Action atorvastatin 10 mg tablet 10 mg PO DAILY ibuprofen [Motrin IB] 200 mg capsule 200 mg PO Q6H PRN (Reason: Pain) omega 9-mbw-nem-fish oil [Fish Oil] 300-1,000 mg capsule 4 cap PO DAILY acetaminophen [Tylenol Arthritis Pain] 650 mg tablet extended release 650 mg PO Q12H PRN (Reason: Pain) ropinirole 0.5 mg tablet 0.5 mg PO BID albuterol sulfate 90 mcg/actuation HFA aerosol inhaler 1 puff inhalation Q4H PRN (Reason: asthma) omeprazole 20 mg capsule,delayed release(DR/EC) 20 mg PO DAILY 90 Days Qty: 90 3RF sildenafil 100 mg tablet 100 mg PO PRN PRN (Reason: Erectile Dysfunction) zolpidem 10 mg tablet 1 tablet PO HS PRN (Reason: Insomnia) metoprolol tartrate 25 mg tablet 1 tablet PO BID Follow-up/Referrals: Suzette,MD [place] [Primary Care Provider, Unknown] Time of Disposition: 12:08
== END 2025-03-02 12:14 | disposition home or self-care (01) ==
PROVIDERS: Emergency Provider Nurse Practitioner Family; PCP Family Medicine
DX: L05.01 Pilonidal cyst with abscess (principal); I10 Essential (primary) hypertension; K21.9 Gastro-esophageal reflux disease without esophagitis; K22.70 Barrett's esophagus without dysplasia; G47.33 Obstructive sleep apnea (adult) (pediatric); M19.90 Unspecified osteoarthritis, unspecified site; Z87.891 Personal history of nicotine dependence
CPT/HCPCS: 87070; 87077; 87186; 99213; G0463